=== PATIENT | male | born 1955 | race Caucasian/White ===

== ENCOUNTER 2023-05-12 20:37 | Emergency (ER) | payer MEDICARE, MEDICAID ==
[~2023-05-12] VITALS: Ht 180.3 cm; Wt 61.4 kg
[2023-05-12] MEDS ORDERED: ondansetron/PF 4mg/2ml inj IV ONE (22:55)
[2023-05-12] MEDS ORDERED: fentaNYL/PF 50MCG/1 ML 2ML syringe IV ONE (22:55)
[2023-05-12] MEDS ORDERED: acetaminophen 325mg tablet PO ONE (22:55)
[2023-05-12 22:57] LABS: BASOPHILS # (AUTO) 0.1 X10'3 (0-0.2); BASOPHILS % (AUTO) 0.7 % (0-1); EOSINOPHILS # (AUTO) 0.2 X10'3 (0-0.9); HEMATOCRIT 36.9 % (42.0-52.0); LYMPHOCYTES # (AUTO) 2.7 X10'3 (1.1-4.8); LYMPHOCYTES % (AUTO) 25.1 % (21-51); MEAN CORPUSCULAR HEMOGLOBIN 27.9 PG (27.0-31.0); MEAN CORPUSCULAR HGB CONC 32.6 g/dL (33.0-36.5); MEAN CORPUSCULAR VOLUME 85.5 FL (78-98); MEAN PLATELET VOLUME 6.8 FL (7.4-10.4); MONOCYTES # (AUTO) 0.7 X10'3 (0-0.9); MONOCYTES % (AUTO) 5.9 % (2-12); NEUTROPHILS # (AUTO) 7.3 X10'3 (1.8-7.7); NEUTROPHILS % (AUTO) 66.3 % (42-75); PLATELET COUNT 536 X10'3 (140-440); RED BLOOD COUNT 4.32 X10'6 (4.70-6.10); RED CELL DISTRIBUTION WIDTH 15.5 % (11.5-14.5)
[2023-05-12 23:09] LABS: APTT 30 SECONDS (22-32); PROTHROMBIN TIME 10.9 SECONDS (9.0-12.0)
[2023-05-12 23:12] LABS: ALANINE AMINOTRANSFERASE 7 U/L (12-78); ALBUMIN 1.9 G/DL (3.4-5.0); ALBUMIN/GLOBULIN RATIO 0.4 (1.1-1.5); ALKALINE PHOSPHATASE 89 IU/L (46-116); ANION GAP 5 (8-16); ASPARTATE AMINO TRANSFERASE 10 U/L (10-37); BILIRUBIN,TOTAL 0.2 MG/DL (0.1-1.0); BLOOD UREA NITROGEN 23 MG/DL (7-18); BUN/CREATININE RATIO 45.1 (10.0-20.0); CALCIUM 9.1 MG/DL (8.5-10.1); CHLORIDE 95 MMOL/L (99-107); CREATININE 0.51 MG/DL (0.60-1.10); GLUCOSE 144 MG/DL (70-104); POTASSIUM 4.5 MMOL/L (3.5-5.1); SODIUM 131 MMOL/L (135-145); TOTAL CARBON DIOXIDE 31.3 MMOL/L (24-32); TOTAL PROTEIN 6.8 G/DL (6.4-8.2); eCRCL 119 ML/MIN; eGFR > 90 ML/MIN
[2023-05-12] MEDS ORDERED: normal saline 1000ML IV soln IVB ONE (23:30)
[2023-05-13] MEDS ORDERED: iohexol 350MG/ML 100ml bottle IV ONE (00:06)
[2023-05-13] MEDS ORDERED: acetaminophen 1,000mg/100ml IV 100 ML IV ONE (00:50)
[2023-05-13] MEDS ORDERED: clopidogrel 300mg tablet PO ONE (01:45)
[2023-05-13] MEDS ORDERED: aspirin 81mg, enteric-coated 1 TAB TABLET.DR PO ONE (01:45)
[2023-05-13] MEDS ORDERED: clopidogrel 75mg tablet PO ONE (01:55)
[2023-05-13] MEDS ORDERED: ipratropium/albuterol 3ml nebule NEB ONE (02:00)
[2023-05-13 02:11] VITALS: PULSE 101; RESP 18; O2SAT 94
[2023-05-13 02:19] VITALS: PULSE 101; RESP 18; O2SAT 96
[2023-05-13 02:35] LABS: PRO BRAIN NATRIURETIC PEPTIDE 91 PG/ML (0-125)
[2023-05-13] MEDS ORDERED: aspirin 81mg tab.chew PO ONE (03:05)
[2023-05-13 03:25] LABS: D-DIMER 1.17 MG/L FEU (0-0.50)
[2023-05-13] MEDS ORDERED: normal saline 1000ML IV soln IVB ONE (04:10)
[2023-05-13] MEDS ORDERED: fentaNYL/PF 50MCG/1 ML 2ML syringe IV ONE ×3 (05:55→10:35)
[2023-05-13] MEDS: HYDROmorphone/PF 0.2 MG/ML SYRINGE IV PRN ×3 (14:06→22:04)
[2023-05-13] MEDS ORDERED: dexamethasone sod phosphate 10mg/ml inj IV STA (14:28)
[2023-05-13] MEDS ORDERED: FLO0.4C PO (14:31)
[2023-05-13] MEDS: dextrose 5%-1/2 normal saline 1,000 ML IV SCH ×2 (14:59→22:51)
[2023-05-14] MEDS: HYDROmorphone/PF 0.2 MG/ML SYRINGE IV PRN ×2 (00:12→05:32)
[2023-05-14] MEDS ORDERED: normal saline 500ml IV soln 500 ML IV ONE (01:20)
[2023-05-14 01:27] VITALS: TEMP 97.3
[2023-05-14 02:06] LABS: BILIRUBIN,URINE NEGATIVE (Neg); CLARITY,URINE CLEAR (Clear); COLOR,URINE YELLOW (Yellow); GLUCOSE, URINE 100 mg/dl (Neg); KETONES,URINE 40 mg/dl (Neg); LEUKOCYTE ESTERASE ,URINE NEGATIVE (Neg); NITRITES, URINE NEGATIVE (Neg); OCCULT BLOOD,URINE TRACE-INTACT (Neg); PROTEIN,URINE NEGATIVE (Neg); UROBILINOGEN,URINE 0.2 E.U/dL (0.2-1.0)
[2023-05-14 02:19] LABS: UA COLLECTION TYPE FOLEY CATH
[2023-05-14 02:25] LABS: MUCUS STRANDS NONE SEEN /LPF (Neg); RBC,URINE 0-2 /HPF (0-2); SQUAMOUS EPITHELIAL CELL,UR FEW /LPF (FEW); WBC,URINE 0-4 /HPF (0-4)
[2023-05-14 02:26] LABS: CAL OXALATE CRYSTALS FEW /HPF (NEGATIVE)
[2023-05-14 02:28] LABS: BACTERIA,URINE NONE SEEN /HPF (Neg)
[2023-05-14 05:21] VITALS: BP 127/70; PULSE 91; O2SAT 98
[2023-05-14 05:58] VITALS: RESP 18
== END 2023-05-14 06:00 | disposition short-term general hospital (02) ==
LOC: ER 20:40
DX: R53.1 Weakness (principal); G95.29 Other cord compression
CPT/HCPCS: 36415; 70450; 71045; 80053; 81001; 82948; 83880; 85025; 85379; 85610; 85730; 87081; 96361; 96374; 96375; 96376; 99291; 99292; J0131; J1100; J1170; J2405; J3010; J7030; J7040; Q9967; 99285